=== PATIENT | female | born 1945 ===

== ENCOUNTER 2016-08-21 15:19 | Emergency (ER) | payer OTHER ==
[2016-08-21 15:19] VITALS: BMI 30.2
[2016-08-21 15:31] VITALS: TEMP 98.7; O2SAT 99
[2016-08-21] MEDS ORDERED: Belladonna-Phenobarbital PO STA (16:04)
[2016-08-21] MEDS ORDERED: Aluminum Hydroxide/Magnesium Hydroxide Susp (30 mL) PO STA (16:04)
[2016-08-21] MEDS ORDERED: Lidocaine 2% Viscous 100 ml PO STA (16:04)
[2016-08-21] MEDS ORDERED: Sodium Chloride 0.9% 1,000 ML IV ONE (16:04)
--- NOTE | 2016-08-21 16:46 | C.PDOC ---
History Of Present Illness 71 y/o female presents to the ED complaining of LUQ abdominal pain x 1.5 hours. She reports that she felt normal before she ate but after she ate some food the pain started. Denies nausea, vomiting, chest pain, shortness of breath, or fever. Chief Complaint (Nursing): Abdominal Pain History Per: Patient History/Exam Limitations: no limitations Onset/Duration Of Symptoms: Hrs (1.5), Sudden Onset, Persistent Current Symptoms Are (Timing): Still Present Context: Food Location Of Pain/Discomfort: LUQ Radiation Of Pain To:: None Recent travel outside of the [place]: No Past Medical History Reviewed: Historical Data, Nursing Documentation, Vital Signs Vital Signs: Last Vital Signs Temp 98.7 F 08/21/16 15:24 Pulse 74 08/21/16 15:24 Resp 20 08/21/16 15:24 BP 154/90 H 08/21/16 15:24 Pulse Ox 99 08/21/16 17:01 - Medical History PMH: Depression, HTN, Kidney Stones Surgical History: Endoscopy - [facility] Procedures CERVICAL LES CRYOTHERAPY (08/08/13) D & C NEC (08/08/13) Family History: States: Unknown Family Hx - Social History Hx Tobacco Use: No Hx Alcohol Use: No Hx Substance Use: No Review Of Systems Except As Marked, All Systems Reviewed And Found Negative. Constitutional: Negative for: Fever Cardiovascular: Negative for: Chest Pain Respiratory: Negative for: Shortness of Breath Gastrointestinal: Positive for: Abdominal Pain (LUQ). Negative for: Nausea, Vomiting Physical Exam - Physical Exam Appears: Non-toxic, No Acute Distress Skin: Normal Color, Warm, Dry Head: Atraumatic, Normacephalic Neck: Normal ROM Chest: Symmetrical Cardiovascular: Rhythm Regular Respiratory: Normal Breath Sounds, No Rales, No Rhonchi, No Wheezing Gastrointestinal/Abdominal: Soft, Tenderness (LUQ), No Guarding, No Rebound Back: Normal Inspection, No CVA Tenderness Extremity: Normal ROM, No Swelling Neurological/Psych: Oriented x3, Normal Speech, Normal Cognition ED Course And Treatment - Laboratory Results Result Diagrams: 08/21/16 16:50 08/21/16 16:50 O2 Sat by Pulse Oximetry: 99 (ra) Pulse Ox Interpretation: Normal - Other Rad Chest X-Ray X-Ray: Viewed By Me, Read By Radiologist (DR. Davies, Laura Dangelo MD) Interpretation: IMPRESSION: No focal consolidation, significant pleural effusion, or definite pneumothorax identified. Progress Note: Plan: CXR, Blood Work, Urinalysis, PO, Zofran IVP, Pepcid IVP, Maalox PO, Lidocaine 2% Viscous, IV Fluids. Medical Decision Making Medical Decision Makinpm: Patient denies any symptoms at this time. Labs reviewed. Patient to be discharged with follow up instructions. Disposition - Disposition Referrals: [facility] Sami Rojas, [Non-Staff] - Disposition: HOME/ ROUTINE Disposition Time: 17:55 Condition: IMPROVED Additional Instructions: Thank you for letting us take care of you today. Your provider was Dr. Arenas. You were treated for gastritis. The emergency medical care you received today was directed at your acute symptoms. If you were prescribed any medication, please fill it and take as directed. It may take several days for your symptoms to resolve. Return to the Emergency Department if your symptoms worsen, do not improve, or if you have any other problems. Please contact your doctor or call one of the physicians/clinics you have been referred to that are listed on the Patient Visit Information form that is included in your discharge packet. Bring any paperwork you were given at discharge with you along with any medications you are taking to your follow up visit. Our treatment cannot replace ongoing medical care by a primary care provider (PCP) outside of the emergency department. Thank you for allowing the [facility] team to be part of your care today. Follow up with your doctor in 3-4 days for re-evaluation. Prescriptions: Ranitidine HCl [Zantac] 150 mg PO BID #20 tablet Instructions: Gastritis (ED) Forms: Gen Discharge Inst Luxembourgish Print Language: NEPALESE - Clinical Impression Clinical Impression: Gastritis - Scribe Statement The provider has reviewed the documentation as recorded by the Scribe (Anya Gonzales) Provider Attestation: All medical record entries made by the Scribe were at my direction and personally dictated by me. I have reviewed the chart and agree that the record accurately reflects my personal performance of the history, physical exam, medical decision making, and the department course for this patient. I have also personally directed, reviewed, and agree with the discharge instructions and disposition.
--- NOTE | 2016-08-21 16:46 | RAD ---
HISTORY: abd pain COMPARISON: Chest x-ray performed 06/01/14 TECHNIQUE: Chest, one view. FINDINGS: Examination limited by habitus. LUNGS: No focal consolidation. Please note that chest x-ray has limited sensitivity for the detection of pulmonary masses. PLEURA: No significant pleural effusion identified. No definite pneumothorax . CARDIOVASCULAR: Heart size appears top normal. Faint atherosclerotic calcifications of the aorta. OSSEOUS STRUCTURES: Degenerative changes. VISUALIZED UPPER ABDOMEN: Unremarkable. OTHER FINDINGS: None. IMPRESSION: No focal consolidation, significant pleural effusion, or definite pneumothorax identified.
[2016-08-21 16:55] LABS: BASO # 0.1 K/uL (0.0-0.2); BASO % 0.8 % (0.0-2.0); EOS # 0.3 K/uL (0.0-0.7); EOS % 3.3 % (0.0-4.0); HEMATOCRIT 36.6 % (34.0-47.0); LYMPH # 1.5 K/uL (1.0-4.3); LYMPH % 19.2 % (20.0-40.0); MEAN CELL VOLUME 84.4 fL (81.0-99.0); MEAN CORPUSCULAR HEMOGLOBIN 28.8 pg (27.0-31.0); MEAN CORPUSCULAR HGB CONC 34.1 g/dL (33.0-37.0); MEAN PLATELET VOLUME 7.7 fL (7.2-11.7); MONO # 0.7 K/uL (0.0-0.8); MONO % 8.6 % (0.0-10.0); RED CELL DISTRIBUTION WIDTH 13.4 % (11.5-14.5); WHITE BLOOD COUNT 7.7 K/uL (4.8-10.8)
[2016-08-21 17:05] LABS: CHLORIDE 102 mmol/L (98-107)
[2016-08-21 17:06] LABS: POTASSIUM 4.3 mmol/L (3.6-5.2); SODIUM 140 mmol/L (132-148)
[2016-08-21 17:08] LABS: ALB/GLOB RATIO 1.3 (1.0-2.1); ALKALINE PHOSPHATASE 55 U/L (38-126); ALT/SGPT 19 U/L (9-52); AST/SGOT 26 U/L (14-36); BILIRUBIN,TOTAL 0.8 mg/dL (0.2-1.3); BLOOD UREA NITROGEN 17 mg/dL (7-17); CARBON DIOXIDE 25 mmol/L (22-30); GFR AFRICAN-AMERICAN > 60; GLUCOSE,RANDOM 92 mg/dL (65-105); TOTAL PROTEIN 7.4 g/dL (6.3-8.3)
[2016-08-21 17:09] LABS: CALCIUM 9.6 mg/dl (8.6-10.4)
[2016-08-21] MEDS ORDERED: Sodium Chloride 0.9% 1,000 ML ONE (17:10)
[2016-08-21] MEDS ORDERED: Belladonna-Phenobarbital ONE (17:10)
[2016-08-21] MEDS ORDERED: Aluminum Hydroxide/Magnesium Hydroxide Susp (30 mL) ONE (17:10)
[2016-08-21 18:14] VITALS: BP 149/87; PULSE 72; RESP 18
--- NOTE | 2016-08-28 14:18 | CARD ---
APPROVED REPORT EKG Measurement Heart [id number] [id number] <Conclusion> Normal sinus rhythm Normal ECG
== END 2016-08-21 18:14 | disposition home or self-care (01) ==
LOC: C.ER 15:19
DX: K29.70 Gastritis, unspecified, without bleeding (principal); I10 Essential (primary) hypertension
CPT/HCPCS: 71010; 80053; 83690; 84484; 85025; 96374; 96375; 99284; J2405; J7040

== ENCOUNTER 2016-10-02 07:16 | Day surgery (SDC) | payer OTHER ==
[2016-10-02] MEDS ORDERED: Propofol 10 mg/ml Inj (20 ML) ONE (09:45)
[2016-10-02] MEDS ORDERED: Lactated Ringer's 500 ML IV ONE (09:48)
[2016-10-02] MEDS ORDERED: Lidocaine Hydrochloride 5 ML INJ ONE (09:51)
[2016-10-02] MEDS ORDERED: Lactated Ringer's 500 ML IV SCH (10:15)
[2016-10-02 11:37] VITALS: TEMP 97.3
[2016-10-02 11:39] VITALS: RESP 16; O2SAT 99
[2016-10-02 11:45] VITALS: BP 123/64; PULSE 64
== END 2016-10-02 11:25 | disposition home or self-care (01) ==
LOC: C.ENDO 07:16
PROVIDERS: ATTEND Internal Medicine
DX: R10.13 Epigastric pain (principal); K29.60 Other gastritis without bleeding; M19.90 Unspecified osteoarthritis, unspecified site; Z87.442 Personal history of urinary calculi; Z87.19 Personal history of other diseases of the digestive system; Z98.890 Other specified postprocedural states; Z79.899 Other long term (current) drug therapy

== ENCOUNTER 2017-01-01 06:30 | Day surgery (SDC) | payer MEDICARE, OTHER ==
[2017-01-01 06:56] VITALS: BMI 32.2
[2017-01-01] MEDS ORDERED: Propofol 10 mg/ml Inj (20 ML) ONE ×2 (09:12)
[2017-01-01] MEDS ORDERED: Lactated Ringer's 500 ML IV SCH (09:15)
[2017-01-01 10:10] VITALS: TEMP 97.8
[2017-01-01 10:19] VITALS: PULSE 60
[2017-01-01 10:55] VITALS: BP 116/56; RESP 18; O2SAT 96
== END 2017-01-01 10:54 | disposition home or self-care (01) ==
LOC: C.ENDO 06:30
PROVIDERS: ATTEND Internal Medicine
DX: Z12.11 Encounter for screening for malignant neoplasm of colon (principal); D12.3 Benign neoplasm of transverse colon; K57.30 Diverticulosis of large intestine without perforation or abscess without bleeding; K64.8 Other hemorrhoids; K62.89 Other specified diseases of anus and rectum; K29.60 Other gastritis without bleeding; M19.90 Unspecified osteoarthritis, unspecified site; Z98.890 Other specified postprocedural states; Z79.899 Other long term (current) drug therapy
CPT/HCPCS: 45380; 88305; J2704; J7120